=== PATIENT | female | born 1990 | race Caucasian/White ===

== ENCOUNTER 2020-07-04 20:59 | Emergency (ER) | payer MEDICAID ==
[~2020-07-04] VITALS: Ht 160 cm; Wt 59.4 kg
[2020-07-04 21:37] VITALS: Ht 160 cm; Wt 59.4 kg
[2020-07-04 22:19] VITALS: BP 113/70
== END 2020-07-04 22:19 | disposition home or self-care (01) ==
LOC: ED 20:59
DX: H10.33 Unspecified acute conjunctivitis, bilateral (principal); Z88.1 Allergy status to other antibiotic agents